=== PATIENT | female | born 1990 | race Caucasian/White ===

== ENCOUNTER → 2016-05-12 13:00 | Outpatient (CLI) | payer MEDICAID ==
[2015-11-13 13:59] VITALS: BMI 30.1
[~2016-05-12 13:00] MED LIST: DILAUDID2 MG PO; HYDROCODON-ACE1 EAC7 PO; HYDROCODONE-APA1 TAB PO; IBUPROFEN800 MG PO; ULTRAM50 MG PO
== END | disposition home or self-care (01) ==
LOC: D.MRI 05-07 16:00
DX: M22.2X1 Patellofemoral disorders, right knee (principal)

== ENCOUNTER → 2017-10-13 16:41 | Outpatient (CLI) | payer OTHER ==
[2015-11-13 13:59] VITALS: BMI 30.1
== END | disposition home or self-care (01) ==
LOC: D.MRI 10-12 10:30
DX: M17.10 Unilateral primary osteoarthritis, unspecified knee (principal)

== ENCOUNTER 2017-11-14 10:05 | Day surgery (SDC) | payer OTHER ==
[2017-11-11 10:55] LABS: HEMATOCRIT 39.7 % (36.0-48.0); HEMOGLOBIN 14.6 g/dL (12-16); MCH 32.7 pg (26.0-34.0); MCHC 36.8 g/dL (31.0-37.0); MEAN PLATELET VOLUME 9.3 fL (7.4-10.4); RBC 4.46 10x6/uL (4.00-5.40); RDW 12.3 % (11.5-14.5); WBC 8.9 10x3/uL (4.8-10.8)
[~2017-11-14] VITALS: Ht 162.6 cm; Wt 82.2 kg
--- NOTE | ~2017-11-14 | OP ---
PATIENT NAME: TABATHA PRABHAKAR MEDICAL RECORD: [id number] :86 LOCATION:D.OPS ADMISSION DATE: SURGEON: AVELINO VANG MD DATE OF OPERATION: 11/14/2017 PREOPERATIVE DIAGNOSIS: Patellofemoral syndrome of the right knee. POSTOPERATIVE DIAGNOSIS: Patellofemoral syndrome of the right knee. PROCEDURE: Right knee arthroscopic lateral release. SURGEON: Avelino Vang MD ANESTHESIA: General. INTRAOPERATIVE COMPLICATIONS: None. SUMMARY OF PATHOLOGIC FINDINGS: The patient had recurrence of her patellofemoral syndrome with compression of the lateral facet on the lateral trochlear groove, consistent with the patient's preoperative diagnosis and MRI as well as symptoms. OPERATIVE SUMMARY IN DETAIL: After obtaining the appropriate preoperative orthopaedic surgery consent as well as anesthetic consultation, evaluation, and clearance, the patient was brought to the operating room and placed on the operating table in the supine position. After general laryngeal mask was administered, a tourniquet was placed about the proximal aspect of the right lower extremity. The right lower extremity was then prepped and draped in routine sterile fashion. The leg was elevated, exsanguinated, and tourniquet was inflated to 350 mmHg. Routine inferolateral portal was established followed by superomedial portal and inferomedial portal. Diagnostic arthroscopy showed basically everything was pristine with the exception of early chondral fissuring on the lateral patella facet and this is consistent with the patient's diagnosis of recurrent patellofemoral syndrome. The arthroscopy was switched to the medial side under direct visualization. Lateral retinaculum was released from just distal to the vastus lateralis to the inferolateral portal. Having completed this, knee was insufflated with 30 cc of 0.25% Marcaine with epinephrine and 40 mg of Depo-Medrol. Arthroscopy portals were closed in routine interrupted fashion using 4-0 Prolene. Sterile dressings were applied. The patient was awakened and taken to recovery room in stable condition. All final needle and sponge counts were correct. TRANSINT:[id number] Voice Confirmation ID: [id number] DOCUMENT ID: [id number] AVELINO VANG MD at 1549 CC: [id number] DICTATION DATE: 11/14/171731 DRY WALL NAILER: 11/14/17 [address] [facility] 11/14/17 [facility] [address] [place] [address]
[2017-11-14 12:14] VITALS: BP 125/80; Ht 162.6 cm; Wt 82.2 kg
[2017-11-14 16:07] LABS: HCG URINE NEGATIVE (NEGATIVE)
[2017-11-14] MEDS ORDERED: HYDROCODONE-APA1 TAB PO (17:34)
== END 2017-11-14 19:35 | disposition home or self-care (01) ==
LOC: D.OPS 10:05 → D.PAN 12:45 → D.OPS 13:10
PROVIDERS: Anesthesiology; Orthopaedic Surgery
DX: M22.2X1 Patellofemoral disorders, right knee (principal); Z01.812 Encounter for preprocedural laboratory examination